=== PATIENT | male | born 1985 | race Caucasian/White ===

== ENCOUNTER 2023-04-26 03:25 | Emergency (ER) | payer MEDICAID, SELFPAY ==
[2023-04-26 03:27] VITALS: BP 140/79; PULSE 75; RESP 16; TEMP 36.6; O2SAT 100; BMI 21.2
--- NOTE | 2023-04-26 03:43 | CT_ITS ---
STUDY: CT ABDOMEN AND PELVIS WITHOUT CONTRAST REASON FOR EXAM: Male, 38 years old patient with right-sided flank pain RADIATION DOSAGE (If Supplied By Facility): CTDIvol = ( 6.04 ) mGy, DLP = ( 308.06 ) mGycm TECHNIQUE: Transaxial images were obtained from the dome of the diaphragm to the symphysis pubis without oral contrast, and without intravenous contrast. Sagittal and coronal images were reconstructed. Individualized dose optimization techniques were used for this CT. COMPARISON: Prior comparison studies are not available for review at this time. FINDINGS: The visualized lung bases are unremarkable. The visualized portions of the heart are within normal limits. Normal liver. There are multiple gallstones. Normal spleen. Normal pancreas. Normal bilateral adrenal glands. Normal right kidney. Normal left kidney. Normal visualized stomach. There is no obvious dilated bowel, ascites or pneumoperitoneum. The small bowel has a grossly normal appearance. There is stool and/or gas visible within the colon. There is non-visualization of the appendix. Normal abdominal aorta. Normal inferior vena cava. Normal retroperitoneum. Normal urinary bladder. There is a small calcification within the dependent urinary bladder measuring approximately 2.3 mm. Normal visualized prostate gland. Normal abdominal wall. Normal osseous structures. CT/Abdomen/Pelvis without Cont IMPRESSION: 1. No CT evidence of acute intra-abdominal disease. 2. There is a calculus in the urinary bladder suggesting passage of a ureteral calculus of uncertain acuity. Electronically Signed: Heydi Collins MD at 4:55 EST ,
--- NOTE | 2023-04-26 03:43 | EX.ED.DYSGE1 ---
HPI History of Present Illness Chief Complaint: Flank Pain Informant: patient Onset/Context/Timing Onset: Today Context: Sudden Onset Timing: Continuous Quality: Sharp Location: Right flank Worsened by: Laying flat Relieved by: Nothing Narrative Narrative: Patient presents with right flank pain that began today. Patient states it woke him up out of his sleep today. Patient describes the pain as sharp. Patient states the pain is mainly over the right flank and into his back. Patient states it is worse whenever he is laying flat. Patient admits to some nausea and vomiting. Patient denies any dysuria, hematuria, or frequency. Patient denies any fevers or chills. Patient denies any chest pain or shortness of breath. PFSH PFSH Medical History no medical history no medical history Home Medications hydrocodone-acetaminophen 5-325mg 5mg-325mg 1 tab PO Q6H PRN PRN Pain 3 days #10 TABLETS 04/26/23 [Rx Last Taken Unknown] Allergy/AdvReac Type Severity Reaction Status Date / Time No Known Allergies Allergy Verified 05/03/13 20:52 Surgical History History of appendectomy Social History Smoking Status: Never smoker ROS ROS ED Constitutional Constitutional ED: Denies chills or fever(s) Eyes Eyes: Denies blurry vision or change in vision ENT ENT ED: Denies rhinorrhea or sore throat Cardiovascular Cardiovascular: Denies chest pain or palpitations Respiratory/Chest Respiratory/Chest: Denies cough or dyspnea Gastrointestinal Gastrointestinal: Reports nausea and vomiting Genitourinary Genitourinary ED: Denies dysuria or hematuria Musculoskeletal Musculoskeletal: Reports back pain; Denies neck pain Integumentary Denies abscess or rash Neurologic Neurologic: Denies headache(s) or weakness Allergic/Immunologic Allergic/Immunologic ED: Denies mouth swelling or urticaria EXAM Physical Exam Const Vital Signs: 04/26/23 03:27 04/26/23 04:32 Temperature 97.9 F Temperature Source Temporal Pulse Rate 75 57 L Respiratory Rate 16 16 Blood Pressure 140/79 H 119/70 Blood Pressure Mean 99 86 Pulse Ox 100 97 Oxygen Delivery Method Room Air Room Air Positive well nourished and well developed General Appearance ED: well developed and NAD HEENT Reports moist mucous membranes Neck supple and no JVD Resp normal respiratory effort and clear to auscultation bilaterally Cardio regular rate and regular rhythm GI non-distended Palpation: soft and tender RLQ and RUQ Back/Spine General Back: CVA tenderness right Neuro oriented x3, CN's II-XII intact bilaterally and no sensory deficits noted Sensorium / Orientation: alert Motor Exam: strength 5/5 throughout Psych mental status grossly normal MDM MDM MDM Narrative Medical decision making narrative: Differential diagnosis includes ureteral calculus, pyelonephritis, urinary tract infection, cholecystitis, cholelithiasis, mesenteric adenitis. CT scan of the abdomen pelvis will be obtained to assess for ureteral calculus and cholecystitis. Urinalysis will be obtained to assess for urinary tract infection and pyelonephritis. CBC will be obtained to assess for leukocytosis and anemia. Basic metabolic profile will be obtained to assess for electrolyte abnormality and renal function. Lab Data Attestation: I reviewed the patient's lab results. Lab results narrative: CBC was reviewed. There is a mild leukocytosis of 15.7. The remainder is within normal limits. Basic metabolic profile was reviewed. Creatinine was slightly elevated at 1.73. BUN was normal. Glucose was slightly elevated at 143. Urinalysis was reviewed. Occult blood was 250 with 10-25 red blood cells. There are 0-5 white blood cells. Labs: Laboratory Results - last 24 hr 04/26/23 04/26/23 03:30 04:20 WBC 15.7 H RBC 5.00 Hgb 15.4 Hct 44.7 MCV 89.4 MCH 30.8 MCHC 34.5 RDW Std Deviation 37.1 RDW Coeff of Mariela 11.6 Plt Count 307 MPV 9.7 Immature Gran % (Auto) 0.400 Neut % (Auto) 63.7 Lymph % (Auto) 27.2 [place] % (Auto) 6.1 Eos % (Auto) 2.0 Baso % (Auto) 0.6 Absolute Neuts (auto) 10.0 H Absolute Lymphs (auto) 4.27 Nucleated RBC % 0 Sodium 140 Potassium 3.5 Chloride 107 Carbon Dioxide 22.0 Anion Gap 11 BUN 18 Creatinine 1.73 H Estim Creat Clear Calc 50.20 Est GFR (MDRD) Af Amer 57 L Est GFR (MDRD) Non-Af 47 L BUN/Creatinine Ratio 10.4 Glucose 143 H Calcium 9.3 Urine Color Yellow Urine Clarity Clear Urine pH 6.0 Ur Specific [place] 1.020 Urine Protein 30 H Urine Glucose (UA) Normal Urine Ketones 50 H Urine Occult Blood 250 H Urine Nitrite Negative Urine Bilirubin Negative Urine Urobilinogen 1 H Ur Leukocyte Esterase 25 H Urine RBC 10-25 SEEN Urine WBC 0-5 SEEN Ur Squamous Epith Cells 0 SEEN Urine Bacteria 1+ Urine Mucus 0 SEEN Radiography Diagnostic Testing: Clinical Impression(s) from Imaging Studies Abdomen/Pelvis CT 04/26/23 03:[address]: [address] evidence of acute intra-abdominal disease. 2. There is a calculus in the urinary bladder suggesting passage of a ureteral calculus of uncertain acuity. Electronically Signed: Heydi Collins MD at 4:55 EST Reading Location ID and State: [facility] / [place] , Service support , CT scan of the abdomen and pelvis was obtained. There is no acute process noted. There is a calculus noted to be in the bladder. This was interpreted by the radiologist and was also independently reviewed by myself. Treatment and Re-Evaluation :: Patient was given IV fluids, morphine, Toradol, and Zofran. Patient was advised of his findings. Patient was instructed to drink plenty of fluids. Patient was given a prescription for [place]. Patient was instructed to follow-up with his primary care physician in 5 to 7 days. Patient was also given a referral for urology. Patient was instructed to return if worse in any way. Patient understood and was agreeable with the plan. All questions were answered. Discharge Plan Triage Chief Complaint: Flank Pain ED Provider: Angel Austin Dx/Rx/DC Orders Clinical Impression: Calculus, ureteral Instructions: ED Kidney Stone, Passed Prescriptions: New hydrocodone-acetaminophen [hydrocodone-acetaminophen] 5-325 mg tablet 1 tab PO Q6H PRN PRN (Reason: Pain) 3 Days Qty: 10 0RF Primary Care Provider: Care Physician,No Primary Referrals: Mahendra Becker MD [Med Staff - Active Staff] - 5-7 Days Be Santizo MD [Med Staff - Steel Unloader] - 5-7 Days Care Physician,No Primary [Primary Care Provider] - Disposition Disposition: Home, Self Care
[2023-04-26] MEDS: 0.9% Normal Saline (1000mL) 1,000 ML 1000 ML IV (03:46)
[2023-04-26] MEDS: Morphine 4 MG/ML Syringe IV (03:47)
[2023-04-26 03:50] LABS: Absolute Lymphocyte Count 4.27 X10^3/uL (0.83-4.51); Basophil% 0.6 % (0-1); Eosinophil# 0.32 X10^3/uL; Hematocrit 44.7 % (40-54); Hemoglobin 15.4 g/dL (13.0-16.5); Lymphocyte # 4.27 X10^3/ul (0.83-4.51); Lymphocyte % 27.2 % (19-41); Mean Corp Hgb Conc 34.5 g/dL (32-36); Mean Corpuscular Hgb 30.8 pg (27.0-32.0); Mean Corpuscular Volume 89.4 fL (80-94); Mean Platelet Vol. 9.7 fl (6.2-12.0); Monocyte# 0.96 X10^3/uL; Monocyte% 6.1 % (0-10); NRBC Flagged by Analyzer 0 % (0-5); Neutrophil # 9.99 X10^3/uL (2.7-7.7); Neutrophil % 63.7 % (47-70); Platelet Count 307 K/mm3 (150-450); RBC Distribution Width CV 11.6 % (11.6-14.6); RBC Distribution Width SD 37.1 fl (35.1-43.9); White Blood Count 15.7 K/mm3 (4.4-11.0)
[2023-04-26] MEDS: Ketorolac 30 MG/ML Syringe IV (03:50)
[2023-04-26] MEDS: Ondansetron 4 MG/2 ML Vial IV (03:51)
[2023-04-26 04:02] LABS: Anion Gap 11 (5-15); BUN 18 mg/dL (7-18); BUN/Creat Ratio 10.4 RATIO (10-20); Calcium,Total 9.3 mg/dL (8.5-10.1); Chloride 107 mmol/L (98-107); Creatinine, Serum 1.73 mg/dL (0.70-1.30); EST Glomerular Filtration Rate 47 mL/min (>60); Est Glom Filt Rate - Afr Amer 57 mL/min (>60); Glucose 143 mg/dL (74-106); Potassium 3.5 mmol/L (3.5-5.1); Sodium Level 140 mmol/L (136-145)
[2023-04-26 04:32] VITALS: BP 119/70; PULSE 57; RESP 16; O2SAT 97
[2023-04-26 04:32] LABS: Color, Urine Yellow (Yellow); Glucose, Dipstick Normal (Normal); Ketone-Dipstick 50 mg/dl (Negative); Leukocyte Esterase-Dipstick 25 /ul (Negative); Mucous, Urine 0 SEEN /hpf (<or=2+); Nitrite-Dipstick Negative (Negative); Occult Blood-Urine 250 /ul (Negative); Protein-Dipstick 30 mg/dl (Negative); Squamous Epithelial Cells - UA 0 SEEN /hpf (0-5); Urine Bilirubin Dipstick Negative (Negative); Urine Clarity Clear (Clear); Urine Urobilinogen 1 mg/dl (Normal)
[2023-04-26 04:51] LABS: Bacteria 1+ /hpf (None Seen); Red Blood Cells-Urine 10-25 SEEN /hpf (0-5); White Blood Cells 0-5 SEEN /hpf (0-5)
[2023-04-26 05:19] VITALS: BP 110/73; PULSE 62; RESP 16; O2SAT 96
== END 2023-04-26 05:26 | disposition home or self-care (01) ==
PROVIDERS: Emergency Provider Emergency Medicine; Visit Provider Emergency Medicine
DX: N20.1 Calculus of ureter (principal)
CPT/HCPCS: 74176; 80048; 81001; 85025; 96361; 96374; 96375; 99283; J7030; A4216; J2405